=== PATIENT | male | born 1980 | race Caucasian/White ===

== ENCOUNTER 2023-08-17 17:13 | Inpatient (IN) | payer OTHER ==
[2023-08-17 17:58] VITALS: BMI 28.1
[2023-08-17] MEDS ORDERED: MAG HYDROX/AL HYDROX/SIMETH 30 ML UNIT-DOSE CUP PO PRN (19:28)
[2023-08-17] MEDS ORDERED: guaiFENesin 600 MG TABLET.ER (FP) PO PRN (19:28)
[2023-08-17] MEDS ORDERED: DOCUSATE SODIUM 100 MG CAPSULE (FP) PO PRN (19:28)
[2023-08-17] MEDS ORDERED: POLYETHYLENE GLYCOL (HEALTHYLAX) 3350 17 GM PACKET PO PRN (19:28)
[2023-08-17] MEDS ORDERED: P-EPHED 60MG/TRIPROLIDI 2.5MG TABLET PO PRN (19:28)
[2023-08-17] MEDS ORDERED: NICOTINE POLACRILEX 2 MG GUM BUC PRN (19:28)
[2023-08-17] MEDS ORDERED: BENZOCAINE/MENTHOL (CHLORASEPTIC ) LOZENGE MM PRN (19:28)
[2023-08-17] MEDS ORDERED: LOPERAMIDE HCL 2 MG CAPSULE PO PRN (19:28)
[2023-08-17] MEDS ORDERED: MAGNESIUM HYDROX 2400MG/30ML ORAL SUSPENSION 30 ML CUP PO PRN (19:28)
[2023-08-17] MEDS ORDERED: BENZONATATE 200 MG CAPSULE PO PRN (19:28)
[2023-08-17] MEDS ORDERED: IBUPROFEN 400 MG TABLET (FP) PO PRN (19:28)
[2023-08-17] MEDS ORDERED: ONDANSETRON *ODT* 4 MG TABLET SL PRN (19:44)
[2023-08-17] MEDS: MELATONIN 5 MG TABLETS PO SCH (21:24)
[2023-08-17] MEDS: THIAMINE HCL 100 MG TABLET (FP) PO SCH (21:24)
[2023-08-17] MEDS ORDERED: TUBERCULIN PPD 5 TU/0.1ML VIAL ID ONE (21:36)
[2023-08-17] MEDS: TUBERCULIN PPD 5 TU/0.1ML SYRINGE (IN PATIENT USE ONLY) ID ONE (22:42)
[2023-08-18] MEDS: ACETAMINOPHEN 325 MG TABLET (FP) PO PRN (06:20)
[2023-08-18] MEDS: hydrOXYzine PAMOATE 25 MG CAPSULE (FP) PO PRN (06:21)
[2023-08-18] MEDS: PRENATAL VITAMINS W/ FOLIC ACID TABLET (FP) PO SCH (09:51)
[2023-08-18 10:43] LABS: EPI CELLS 11 /uL (0-25.1); HYALINE CASTS 2 /uL (0-3.1); PH,URINE 6.5 (5.0-8.0); URINE APPEARANCE CLEAR; URINE BACTERIA 23 /uL (0-1359); URINE BILIRUBIN 2+ (NEGATIVE); URINE COLOR DK YELLOW; URINE GLUCOSE (UA) NEGATIVE (NEGATIVE); URINE KETONE 1+ (NEGATIVE); URINE LEUK ESTERASE TRACE (NEGATIVE); URINE NITRITE NEGATIVE (NEGATIVE); URINE PROTEIN 2+ (NEGATIVE); URINE RBC 40 /uL (0-23.9); URINE WBC 33 /uL (0-25.8)
[2023-08-18] MEDS: GABAPENTIN 100 MG CAPSULE PO SCH (21:17)
[2023-08-18] MEDS: OLANZapine 5 MG TABLET PO SCH (21:17)
[2023-08-19] MEDS: FLUoxetine HCL 20 MG CAPSULE PO SCH (09:43)
[2023-08-23 10:00] LABS: BASO % 0.8 % (0-2.0); EOS % 1.5 % (0-4.5); HEMATOCRIT 45.2 % (35.4-49); HEMOGLOBIN 15.4 GM/dL (11.7-16.9); LYMPH % 37.4 % (8-40); MCH 31.9 pg (25.7-33.7); MCHC 34.1 g/dl (32.0-35.9); MEAN CELL VOLUME 93.6 fl (80-96); MONO % 11.4 % (3.8-10.2); NEUT % 48.9 % (42.8-82.8); PLATELET COUNT 169 10^3/uL (134-434); RBC 4.83 M/mm3 (4.00-5.60); RDW 13.5 % (11.9-15.9); WHITE BLOOD COUNT 5.4 K/mm3 (4.0-10.0)
[2023-08-23 10:38] LABS: POTASSIUM 4.3 mmol/L (3.5-5.1)
[2023-08-23 10:45] LABS: CALCIUM 9.1 mg/dL (8.5-10.1)
[2023-08-23 10:46] LABS: ALBUMIN 3.9 g/dl (3.4-5.0); BLOOD UREA NITROGEN 16.8 mg/dL (7-18)
[2023-08-23 10:49] LABS: CREATININE 0.8 mg/dL (0.55-1.3)
[2023-08-23 10:51] LABS: BILIRUBIN,TOTAL 0.6 mg/dL (0.2-1); TOT PROT 7.1 g/dl (6.4-8.2)
[2023-08-26] MEDS: IBUPROFEN 600 MG TABLET (FP) PO PRN (12:04)
[2023-09-13 06:48] VITALS: BP 129/89; PULSE 84; RESP 16; TEMP 97.8
== END 2023-09-13 09:53 | disposition home or self-care (01) | DRG 772 ==
LOC: YASAS 17:13 → Y3E 19:30
PROVIDERS: ADMIT Allergy & Immunology; ATTEND Psychiatry & Neurology Pain Medicine
PROC: HZ42ZZZ Group Counseling for Substance Abuse Treatment, Cognitive-Behavioral (ICD-10-PCS; principal; 2023-08-17)
DX: F10.20 Alcohol dependence, uncomplicated (principal); F13.20 Sedative, hypnotic or anxiolytic dependence, uncomplicated; F12.20 Cannabis dependence, uncomplicated; F17.210 Nicotine dependence, cigarettes, uncomplicated; F25.0 Schizoaffective disorder, bipolar type; F19.24 Other psychoactive substance dependence with psychoactive substance-induced mood disorder; G47.00 Insomnia, unspecified; Z28.310 Unvaccinated for COVID-19; Z28.9 Immunization not carried out for unspecified reason; Z91.199 Patient's noncompliance with other medical treatment and regimen due to unspecified reason; Z59.00 Homelessness unspecified
CPT/HCPCS: 36415; 80053; 81003; 82140; 82652; 83735; 85025; 86780; 86803; 87635; 93005; 93010

== ENCOUNTER 2024-03-15 19:44 | Inpatient (IN) | payer OTHER ==
[2024-03-15 20:57] VITALS: BMI 31.0
[2024-03-15] MEDS ORDERED: NALOXONE HCL 0.4 MG/ML VIAL IM PRN (22:10)
[2024-03-15] MEDS ORDERED: BENZONATATE 200 MG CAPSULE PO PRN (22:10)
[2024-03-15] MEDS ORDERED: NALOXONE (NARCAN) HCL 4 MG/0.1 ML SPRAY NS PRN (22:10)
[2024-03-15] MEDS ORDERED: POLYETHYLENE GLYCOL (HEALTHYLAX) 3350 17 GM PACKET PO PRN (22:10)
[2024-03-15] MEDS ORDERED: BENZOCAINE/MENTHOL (CHLORASEPTIC ) LOZENGE MM PRN (22:10)
[2024-03-15] MEDS ORDERED: MAGNESIUM HYDROX 2400MG/30ML ORAL SUSPENSION 30 ML CUP PO PRN (22:10)
[2024-03-15] MEDS ORDERED: guaiFENesin 600 MG TABLET.ER (FP) PO PRN (22:10)
[2024-03-15] MEDS ORDERED: MAG HYDROX/AL HYDROX/SIMETH 30 ML UNIT-DOSE CUP PO PRN (22:10)
[2024-03-15] MEDS ORDERED: LOPERAMIDE HCL 2 MG CAPSULE PO PRN (22:10)
[2024-03-15] MEDS: MELATONIN 5 MG TABLETS PO SCH (23:00)
[2024-03-15] MEDS ORDERED: MELATONIN 5 MG TABLETS ONE (23:27)
[2024-03-15] MEDS ORDERED: hydrOXYzine PAMOATE 25 MG CAPSULE (FP) PO ONE (23:27)
[2024-03-15] MEDS: hydrOXYzine PAMOATE 25 MG CAPSULE (FP) PO PRN (23:30)
[2024-03-16] MEDS: PRENATAL VITAMINS W/ FOLIC ACID TABLET (FP) PO SCH (10:29)
[2024-03-16] MEDS: NICOTINE 21 MG/24 HOURS TOPICAL PATCH TD SCH (10:29)
[2024-03-16 11:13] LABS: HEMOGLOBIN 15.3 GM/dL (11.7-16.9); MCH 32.2 pg (25.7-33.7); MCHC 34.9 g/dl (32.0-35.9); MEAN CELL VOLUME 92.3 fl (80-96); MEAN PLT VOLUME 11.1 fl (7.5-11.1); PLATELET COUNT 177 10^3/uL (134-434); RBC 4.76 M/mm3 (4.00-5.60); RDW 13.8 % (11.9-15.9); WHITE BLOOD COUNT 5.6 K/mm3 (4.0-10.0)
[2024-03-16] MEDS: ARIPiprazole 5 MG TABLET PO SCH (14:36)
[2024-03-16] MEDS: GABAPENTIN 100 MG CAPSULE PO SCH (14:36)
[2024-03-16] MEDS: MELATONIN 5 MG TABLETS PO SCH (21:09)
[2024-03-16] MEDS: THIAMINE 100 MG TABLET PO SCH (21:10)
[2024-03-16] MEDS: GABAPENTIN 300 MG CAPSULE PO SCH (21:10)
[2024-03-16] MEDS: hydrOXYzine PAMOATE 25 MG CAPSULE (FP) PO PRN (21:10)
[2024-03-21] MEDS: ACETAMINOPHEN 325 MG TABLET (FP) PO PRN (06:54)
[2024-03-23] MEDS: IBUPROFEN 600 MG TABLET (FP) PO PRN (12:35)
[2024-03-23] MEDS: GABAPENTIN 100 MG CAPSULE PO ONE (16:54)
[2024-03-24] MEDS: IBUPROFEN 400 MG TABLET (FP) PO PRN (09:59)
[2024-03-25] MEDS: BACITRACIN ZINC 15 GM TUBE TOPICAL OINTMENT TP SCH (21:15)
[2024-03-26] MEDS: GABAPENTIN 400 MG CAPSULE PO SCH (21:35)
[2024-03-27] MEDS: GABAPENTIN 300 MG CAPSULE PO SCH (21:06)
[2024-03-28 06:28] VITALS: BP 123/83; PULSE 67; RESP 16; TEMP 97.7
== END 2024-03-28 09:20 | disposition home or self-care (01) | DRG 772 ==
LOC: YASAS 19:44 → Y3NR 23:23 → Y3W 03-18 12:30 → Y3E 03-19 12:55
PROVIDERS: ADMIT Psychiatry & Neurology Pain Medicine; ATTEND Psychiatry & Neurology Pain Medicine
PROC: HZ42ZZZ Group Counseling for Substance Abuse Treatment, Cognitive-Behavioral (ICD-10-PCS; principal; 2024-03-15)
DX: F10.20 Alcohol dependence, uncomplicated (principal); F17.210 Nicotine dependence, cigarettes, uncomplicated; F25.9 Schizoaffective disorder, unspecified; F31.9 Bipolar disorder, unspecified; F19.282 Other psychoactive substance dependence with psychoactive substance-induced sleep disorder; F19.280 Other psychoactive substance dependence with psychoactive substance-induced anxiety disorder; F19.24 Other psychoactive substance dependence with psychoactive substance-induced mood disorder; F41.9 Anxiety disorder, unspecified; S50.12XA Contusion of left forearm, initial encounter; W22.03XA Walked into furniture, initial encounter; Y92.238 Other place in hospital as the place of occurrence of the external cause; Z56.0 Unemployment, unspecified; Z59.00 Homelessness unspecified
CPT/HCPCS: 36415; 80305; 80307; 85027; 86780; 87811; 93005; 93010